=== PATIENT | male | born 1945 ===

== ENCOUNTER 2024-02-11 18:55 | Inpatient (IN) | payer MEDICARE, MEDICAID, SELFPAY ==
[2024-02-11 21:32] VITALS: BP 159/90; PULSE 83; RESP 18; TEMP 36.8; O2SAT 98
[2024-02-11 21:35] VITALS: BMI 21.5
[2024-02-11] MEDS: Acetaminophen 325 MG TABLET 650 MG PO (22:35)
[2024-02-11] MEDS: Flu Vacc TS2024-25(6mos up)/PF 0.5 ML SYRINGE IM (22:50)
--- NOTE | 2024-02-12 01:34 | PC.ADMIT ---
Admitted these 78 y.o. male patient per stretcher accompanied by linux security administrator w/ CV. According to the report Pt drove from his home in [facility] to [place] to look for his ex-girlfriend, woman did not know him and called the police. Pt w/ increase cognitive decline, lability, disorganization. Upon admission, pt is pleasant on approached, cooperative. Pt is alert and oriented x4, very talkative, irritable and hyper verbal at times. Skin is intact, w/ an old bruise around his L. eye and neck. Pt. w/ +2 pedal edema on the L. foot and wearing a knee brace on the L. leg. Pt has medical hx of HTN, Chronic pain and GERD. Pt is independent in ADL's and ambulation using a cane at home. Pt denies SI/HI/ depression/anxiety/AVH and feels safe in the unit. Pt c/o pain on his L.leg and was given Tylenol w/ effect. Dr. Lexy Cortez notified of the admission w/ admitting orders in. Pt signs some of the release of information but he refused to sign some of it. We'll continue to monitor the patient.
[2024-02-12 08:00] VITALS: BP 135/73; PULSE 86; RESP 16; O2SAT 97
[2024-02-12] MEDS: Gabapentin 300 MG CAPSULE 600 MG PO ×3 (08:42→20:29)
[2024-02-12] MEDS: Aspirin 81 MG TAB.CHEW PO (08:43)
[2024-02-12] MEDS: Donepezil HCl 5 MG TABLET PO (08:43)
[2024-02-12] MEDS: Acetaminophen 325 MG TABLET 650 MG PO ×2 (08:43→20:29)
[2024-02-12] MEDS: Omeprazole 20 MG CAPSULE.DR PO (08:43)
[2024-02-12 09:27] VITALS: BP 154/82
[2024-02-12] MEDS: amLODIPine Besylate 10 MG TABLET PO (09:27)
[2024-02-12 09:28] VITALS: BP 154/82
[2024-02-12] MEDS: lisinopriL 20 MG TABLET PO (09:28)
--- NOTE | 2024-02-12 11:48 | HO.PM.IMCN ---
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 Patient was initially picked up by the police in [facility] after he repeatedly attempted to see a person at her house who he claimed was an old friend who was inviting him over, though the resident categorically denied knowing the patient and was becoming worried about herself being. Medical consult for admission H&P. ?Patient appears mildly manic and delusional at time of interview and exam, speaking energetically without significant pauses. Occasionally difficult to redirect. Patient noted to have ecchymosis on left side of his face around his eye. Reports fell playing soccer with his grandkids. Also notes a history of polio when he was a child and suffering from post-polio syndrome and chronic left drop. Reports some recent increase in swelling of left foot. Has been using compression stockings. Patient denies any acute medical complaints, though HPI difficult to obtain due to patient's fixation on telling his story of how he was brought to the hospital. Denies chest pain/pressure, palpitations. No shortness of breath or difficulty breathing. Denies fever, chills, nausea, vomiting, abdominal pain. Review of Systems Review of Systems: Increased left foot swelling Otherwise no acute medical complaints PMFSH Social History Household Members: None Housing: Apartment Do you presently have visiting nurse or other home services: No ('[employer]have a [employer] that buy foods and groceries .) Patient Tobacco Use Status: Former Tobacco user Tobacco use type: Cigarette Cigarette Packs Per Day: 1 Cigarettes Per Day: 1 Smoked in Last 30 Days: No e-Cigarette/Vaping Use: Never Used Patient Interested in Nicotine Replacement: No Patient Given Instructions on How to Stop Smoking: No (PT quit smoking since 1984) Second Hand Smoke Exposure: No Use of substances other than those prescribed or required for medical reasons: No Currently Displaying Signs/Symptoms of Drug Intoxication Withdrawal: No Any prior treatment program specific to substance use: No Have you been hit, kicked, punched, or otherwise hurt by someone within the past year? If so, by whom?: No Do you feel safe in your current relationship?: Yes Is there a partner from a previous relationship who is making you feel unsafe now?: No Are you made to feel afraid or neglected: No Advance Directives: No Advance Directives Information Provided: Yes Do you have thoughts of harming others: None Do you have a plan to hurt others: No Plan Recently lost weight without trying: No Eating poorly because of decreased appetite: No Nutrition Risks: No Nutritional Risk Poor oral hygiene: No Meds Allergies Allergy/AdvReac Type Severity Reaction Status Date / Time buspirone AdvReac Hallucinati Verified 02/11/24 21:47 ons trazodone AdvReac Unknown Verified 02/11/24 21:47 Active Medications: Current Medications Acetaminophen (Acetaminophen 325 Mg Tablet) 650 mg PO Q6H PRN PRN Reason: Headache/Pain Mild Scale (1-3) Last Admin: 02/12/24 08:43 Dose: 650 mg Al Hydroxide/Mg Hydroxide (Magnesium Hydrox/Alum Hydrox 30 Ml Oral.Susp) 30 ml PO Q6H PRN PRN Reason: Heartburn/Nausea Amitriptyline HCl (Amitriptyline Hcl 25 Mg Tablet) 75 mg PO BEDTIME [facility] Amlodipine Besylate (Amlodipine Besylate 10 Mg Tablet) 10 mg PO DAILY [facility]; Protocol Last Admin: 02/12/24 09:27 Dose: 10 mg Aspirin (Aspirin 81 Mg Tab.Chew) 81 mg PO DAILY [facility] Last Admin: 02/12/24 08:43 Dose: 81 mg Donepezil HCl (Donepezil Hcl 5 Mg Tablet) 5 mg PO DAILY [facility] Last Admin: 02/12/24 08:43 Dose: 5 mg Gabapentin (Gabapentin 300 Mg Capsule) 600 mg PO TID [facility] Last Admin: 02/12/24 08:42 Dose: 600 mg Hydroxyzine HCl (Hydroxyzine Hcl 25 Mg Tablet) 25 mg PO Q6H PRN PRN Reason: Anxiety Lisinopril (Lisinopril 20 Mg Tablet) 20 mg PO DAILY [facility]; Protocol Last Admin: 02/12/24 09:28 Dose: 20 mg Magnesium Hydroxide (Milk Of Magnesia 30 Ml Oral.Susp) 30 ml PO DAILY PRN PRN Reason: Constipation Omeprazole (Omeprazole 20 Mg Capsule.) 20 mg PO DAILY@0630 [facility] Last Admin: 02/12/24 08:43 Dose: 20 mg Home Medications ?Medication ?Instructions ?Recorded ?Confirmed ?Last Taken ?Type acetaminophen 500 mg tablet 1,000 mg PO QID PRN Pain 02/11/24 02/11/24 02/10/24 22:39 History (Acetaminophen Extra Strength) amitriptyline 25 mg tablet 75 mg PO BEDTIME 02/11/24 02/11/24 02/10/24 20:28 History amlodipine 10 mg tablet 10 mg PO DAILY 02/11/24 02/11/24 Unknown History aspirin 81 mg capsule,delayed 81 mg PO DAILY 02/11/24 02/11/24 02/11/24 09:48 History release donepezil 5 mg tablet 5 mg PO QAM 02/11/24 02/11/24 02/11/24 09:48 History gabapentin 300 mg capsule 600 mg PO TID 02/11/24 02/11/24 02/11/24 09:48 History lisinopril 20 mg tablet 20 mg PO DAILY 02/11/24 02/11/24 02/11/24 09:48 History pantoprazole 40 mg tablet,delayed 40 mg PO QAM 02/11/24 02/11/24 02/11/24 09:48 History release Physical Exam Vital Signs and Narrative: Vital Signs: Last Vital Signs Temp 98.2 F 02/11/24 21:32 Pulse 86 02/12/24 08:00 Resp 16 02/12/24 08:00 BP 154/82 H 02/12/24 09:28 Pulse Ox 97 02/12/24 08:00 O2 Del Method Room Air 02/12/24 08:00 BMI result Body Mass Index 21.5 General: AOx3, no acute distress Resp: CTA bilaterally CVS: S1, S2, RRR GI: +BS, NT, no distention Skin: Warm, dry Neuro: Cranial nerves II-XII grossly intact bilaterally. Chronic left drop foot, otherwise motor grossly intact bilaterally Extremities: Left foot swelling. 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 Patient was initially picked up by the police in [facility] after he repeatedly attempted to see a person at her house who he claimed was an old friend who was inviting him over, though the resident categorically denied knowing the patient and was becoming worried about herself being. Medical consult for admission H&P. ? Mood disorder Plan as per psychiatry Left drop foot with edema Chronic, secondary to childhood polio and post-polio symdrome Compression stockings, foot elevation while in bed for edema HTN Continue amlodipine, lisinopril Peripheral neuropathy Continue gabapentin GERD Continue PPI Thank you for allowing us to participate in the care of this patient. Signing off at this time. Please re-consult if any acute complaints or issues arise.
[2024-02-12 13:10] VITALS: BMI 21.5
--- NOTE | 2024-02-12 18:29 | P.HPPS_ITS ---
HPI Date of Service: 02/12/24 Chief Complaint: Mood disorder unspecified Sources of Information: patient interviewed, chart reviewed and crisis/core team assessment reviewed HPI Subjective Notes: Santana Warning, Conditional Voluntary and 3 Day Narrative: Patient is a 78-year-old male with history of hypertension, Polio/post-polio syndrome with left footdrop, GERD, arthritis, without any known psychiatric history who presents for being disorganized. Patient says this is a misunderstanding and is frustrated with the [facility] police. Patient says that he was trying to get a hold of his old high school flame name Milli; says they talked on the phone and he had her address and was driving from his home in [facility] to meet her. He went to the house that he thought was hers, knocked on the door and some unknown woman came out, coincidentally also named Elizabeth. Patient drove home but returned the following week and went to the police/fire station asking for help to find the house with the address he had. Of course it was the same address and they took him to the same house. Patient said when he got there he realized it was the same, incorrect house and told them not to knock on the door; they did not and the woman was irate and said patient was stalking her. Police thus brought him to the hospital and here he is. He denies any history of psychiatric hospitalization; denies any history of manic episodes/behaviors; denies any SI. He wants to discharge and return home saying he is cooking Thanksgiving for friends. Past Psychiatric History: Denies any past history of psychiatric admissions Limited history of psychiatric medications; he said when he was 10 years ago he was briefly prescribed BuSpar but only took it once and never again Currently on amitriptyline 75 mg q.h.s. On donepezil 5 mg daily Medical Evaluation Reviewed: Yes [facility] Medical History (Updated 02/12/24 @ 18:40 by Arvin Chatman MD) Transient disorientation Family History: Deferred Social History: Patient lives in [facility] [place] [facility] about 10 years ago Has numerous children; extensive extended family Substance History: denies Trauma History: Defer Diagnostics Vital Signs (24Hr): Vital Signs - 24 hr 02/11/24 21:32 02/12/24 08:00 02/12/24 09:27 Temperature 98.2 F Pulse Rate 83 86 Respiratory Rate 18 16 Blood Pressure 159/90 H 135/73 154/82 H Pulse Oximetry 98 97 Oxygen Delivery Method Room Air Room Air 02/12/24 09:28 Temperature Pulse Rate Respiratory Rate Blood Pressure 154/82 H Pulse Oximetry Oxygen Delivery Method BMI result Body Mass Index 21.5 Meds/Allergies Meds Home Medications ?Medication ?Instructions ?Recorded ?Confirmed ?Type acetaminophen 500 mg tablet 1,000 mg PO QID PRN Pain 02/11/24 02/11/24 History (Acetaminophen Extra Strength) amitriptyline 25 mg tablet 75 mg PO BEDTIME 02/11/24 02/11/24 History amlodipine 10 mg tablet 10 mg PO DAILY 02/11/24 02/11/24 History aspirin 81 mg capsule,delayed 81 mg PO DAILY 02/11/24 02/11/24 History release donepezil 5 mg tablet 5 mg PO QAM 02/11/24 02/11/24 History gabapentin 300 mg capsule 600 mg PO TID 02/11/24 02/11/24 History lisinopril 20 mg tablet 20 mg PO DAILY 02/11/24 02/11/24 History pantoprazole 40 mg tablet,delayed 40 mg PO QAM 02/11/24 02/11/24 History release Allergies Allergies Allergy/AdvReac Type Severity Reaction Status Date / Time buspirone AdvReac Hallucinati Verified 02/11/24 21:47 ons trazodone AdvReac Unknown Verified 02/11/24 21:47 Mental Status Exam Mental Status Exam Narrative: Pt is alert and oriented; behavior is cooperative, friendly and calm; patient is not in distress; dressed in casual attire with adequate grooming and hygiene; bruise on left eye he said was from a soccer ball playing with nephews; mood is described as good and affect congruent; eye contact appropriate; Speech is normal rate, volume and prosody and not pressured; no psychomotor agitation/retardation present; thought process is organized and goal directed, though can be circumstantial; Thought content is on unnecessary psychiatric admission, discharge; otherwise pertinent to relevant topics; no overt delusional/paranoid thinking expressed or at least that could be determined; denies any SI/HI; denies any AVH and does not appear to be internally preoccupied. Patients insight and judgment possibly impaired though not clear. Assessment & Plan Assessment & Plan (1) Transient disorientation: Status: Acute Code(s): R41.0 - Disorientation, unspecified Plan Patient is a 78-year-old male with history of hypertension, Polio/post-polio syndrome with left footdrop, GERD, arthritis, without any known psychiatric history who presents for being disorganized. Patient says this is a misunderstanding and is frustrated with the [facility] police. Patient says that he was trying to get a hold of his old high school flame name Milli; says they talked on the phone and he had her address and was driving from his home in [facility] to meet her. He went to the house that he thought was hers, knocked on the door and some unknown woman came out, coincidentally also named Elizabeth. Patient drove home but returned the following week and went to the police/fire station asking for help to find the house with the address he had. Of course it was the same address and they took him to the same house. Patient said when he got there he realized it was the same, incorrect house and told them not to knock on the door; they did not and the woman was irate and said patient was stalking her. Police thus brought him to the hospital and here he is. He denies any history of psychiatric hospitalization; denies any history of manic episodes/behaviors; denies any SI. He wants to discharge and return home saying he is cooking Thanksgiving for friends. Formulation/clinical reasoning: Patient presents logical and with organized speech and behavior. He can be irritable at times but that matches with the fact that he feels he has been wrongly admitted to a psychiatric hospital. Denies any history of psychiatric illness or admissions. Patient explains this mishap with going to the wrong house in a logical and organized way. It is unclear however if this is an accurate per trail of what happened. He does have a history of being on donepezil making dementia a rule out as possible contributing factor. Will need to assess further, try to gather collateral and do cognitive testing. Plan: CV/3 day notice Q 15 minute checks Continue home medications Cognitive testing Get head CT from sending facility Gather collateral Will order UA Will repeat labs to monitor potassium Labs from sending facility: CBC grossly WNL with mild normocytic anemia; BUN/creatinine grossly WNL lytes WNL Initially hypokalemia at 2.8 that resolved and returned to normal at 3.7 No UA Patient educated on: diagnosis and medication risk/benefits Informed Consent: understands and further education needed Reason for continued inpatient stay Substantial Risk for: stable for discharge and rapid decompensation Statement Statement: I have reviewed the history and physical and performed a pertinent examination on my patient. No changes have occurred unless specified. If the History and Physical was not performed prior to admission, the Hospitalist's service will be consulted for completing the admission physical. Time Spent With Patient Time: Total time managing care of this patient today ____ minutes.
[2024-02-12 20:00] VITALS: BP 154/74; PULSE 82; RESP 18; TEMP 36.6; O2SAT 98
[2024-02-12] MEDS: OLANZapine 2.5 MG TABLET PO (22:25)
[2024-02-12] MEDS: Amitriptyline HCl 25 MG TABLET 75 MG PO (22:25)
--- NOTE | 2024-02-13 | ECG_ITS ---
Test Reason : LOW POTASSIUM Blood Pressure : / mmHG Vent. Rate : 075 BPM Atrial Rate : 075 BPM P-R Int : 208 ms QRS Dur : 128 ms QT Int : 406 ms P-R-T Axes : 076 -34 035 degrees QTc Int : 453 ms Normal sinus rhythm Left axis deviation Left ventricular hypertrophy with QRS widening ( R in aVL , Sokolow-Agustin , Jay product , Romhilt-June ) Nonspecific T wave abnormality Abnormal ECG No previous ECGs available Referred By: Samantha Rendon Electronically Signed By:PAZ SUE MD
[2024-02-13] MEDS: Omeprazole 20 MG CAPSULE.DR PO (06:46)
[2024-02-13 07:58] VITALS: BP 155/77; PULSE 80; RESP 15; TEMP 36.8; O2SAT 95
[2024-02-13] MEDS: Aspirin 81 MG TAB.CHEW PO (08:00)
[2024-02-13] MEDS: amLODIPine Besylate 10 MG TABLET PO (08:00)
[2024-02-13] MEDS: Donepezil HCl 5 MG TABLET PO (08:00)
[2024-02-13] MEDS: Gabapentin 300 MG CAPSULE 600 MG PO ×3 (08:00→20:56)
[2024-02-13] MEDS: lisinopriL 20 MG TABLET PO (08:02)
[2024-02-13] MEDS: Acetaminophen 325 MG TABLET 650 MG PO ×2 (08:10→21:02)
[2024-02-13 09:03] LABS: MANUAL DIFF FLAG NO
[2024-02-13 09:06] LABS: Basophils Absolute Auto 0.1 X10*3/uL (0.0-0.2); Basophils Percent Auto 0.5 % (0-2); Eosinophils Absolute Auto 0.6 X10*3/uL (0.0-0.4); Eosinophils Percent Auto 6.3 % (0-4); Hematocrit 31.4 % (42.0-52.0); Hemoglobin 10.7 g/dl (14.0-18.0); Imm Gran Abs Auto 0.03 X10*3/uL (0.00-0.03); Imm Gran Pct Auto 0.3 % (0.0-0.4); Lymphocytes Absolute Auto 2.2 X10*3/uL (1.2-4.9); Lymphocytes Percent Auto 23.7 % (20-40); Mean Corpuscular HGB Conc 34.1 g/dl (31.0-36.0); Mean Corpuscular Hemoglobin 31.3 pg (27.0-33.0); Mean Corpuscular Volume 91.8 fL (80.0-98.0); Mean Platelet Volume 11.4 fL (9.4-12.4); Monocytes Absolute Auto 0.8 X10*3/uL (0.1-1.2); Monocytes Percent Auto 8.3 % (2-11); Neutrophils Absolute Auto 5.8 x10*3/uL (2.0-8.3); Neutrophils Percent Auto 60.9 % (45-73); Platelet Count 157 X10*3/uL (160-400); Red Blood Count 3.42 X10*6/uL (4.60-5.80); White Blood Count 9.5 X10*3/uL (4.8-10.8)
[2024-02-13 09:28] LABS: Alanine Aminotransferase 16 U/L (0-40); Albumin Level 3.4 g/dL (3.5-5.0); Alkaline Phosphatase 52 U/L (39-117); Anion Gap 11 (12-20); Aspartate Amino Transferase 34 U/L (5-37); Bilirubin Total 0.6 mg/dL (0.0-1.0); Blood Urea Nitrogen 18 mg/dL (9-16); Carbon Dioxide 30 mmol/L (22-29); Chloride 107 mmol/L (96-108); Creatinine Clr Calc Pharmacy 68.3; Estimated Glomerular Filt Rate > 60; Glucose Random 92 mg/dL (60-115); Potassium 2.7 mmol/L (3.3-5.1); Sodium 145 mmol/L (135-145); Total Protein 5.6 g/dL (6.5-8.0)
[2024-02-13 09:47] LABS: Cholesterol 158 mg/dL (<200); HDL Cholesterol 38 mg/dL (>40); LDL Cholesterol Calculated 100 mg/dL (<100); Triglycerides 104 mg/dL (<150)
[2024-02-13 09:57] LABS: Folate 9.1 ng/mL (> or = 4.0); Vitamin B12 471 pg/mL (200-900)
[2024-02-13 10:07] LABS: Thyroid Stimulating Hormone 1.23 uIU/mL (0.32-4.0)
--- NOTE | 2024-02-13 11:04 | PM.EVENT ---
Event Note Date of Service: 02/13/24 Event Note: Pt found to have hypokalemia on routine labs. he is not having nausea, vomiting or diarrhea. not on any diuretics, steroids, or inhalers. kidney function is good, GFR>60. A/P: EKG ok appears to have chronic hypokalemia in records, had K of 2.8 recently give K 60meq PO now, additional 40 meq later tonight. mag normal. recheck BMP tomorrow, will likely need daily supplementation will continue to follow for now. Time Spent With Patient Time: Total time managing care of this patient today ____ minutes.
[2024-02-13] MEDS: Potassium Chloride Packet 20 MEQ PACKET 60 MEQ PO (11:57)
--- NOTE | 2024-02-13 12:30 | HO.PSYCHPN ---
Subjective Subjective Date of Service: 02/13/24 Reason For Visit: Mood disorder unspecified Interim History: Met with patient; discussed with team, more evidence of cognitive impairment showing itself. Patient explained situations but the story changes and with inconsistences. 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 With OT, was unable to operate his cellphone; Briscoe/Oziel test revealed cognitive impairment. Patient signed release of information to call family EKG with ST elevation in 2 leads; no complaints of any chest pain or associated symptoms; tropes ordered out of abundance of caution which were negative Mental Status Exam Mental Status Exam Narrative: Pt is alert and oriented; behavior is cooperative, mostly friendly and calm but can get irritable; patient is not in distress; dressed in casual attire with adequate grooming and hygiene; bruise on left eye (he said was from a soccer ball playing with nephews/grandkids?); mood is described as good though affect somewhat constricted t; eye contact appropriate; Speech is normal rate, volume and prosody and not pressured; no psychomotor agitation/retardation present; thought process is mostly organized and goal directed, though can be circumstantial and can get distracted, with some forgetfulness; Thought content is on unnecessary psychiatric admission, discharge; more evidence of delusional/grandiose thinking expressed; denies any SI/HI; denies any AVH and does not appear to be internally preoccupied. Patients insight and judgment impaired Diagnostics Vital Signs (24Hr): Vital Signs - 24 hr 02/12/24 20:00 02/13/24 07:58 Temperature 97.8 F 98.2 F Pulse Rate 82 80 Respiratory Rate 18 15 Blood Pressure 154/74 H 155/77 H Pulse Oximetry 98 95 Oxygen Delivery Method Room Air Room Air BMI result Body Mass Index 21.5 Labs 02/13/24 08:04 02/14/24 16:25 Labs: Laboratory Results - last 48 hr 02/13/24 02/13/24 02/13/24 08:04 08:04 08:04 WBC 9.5 RBC 3.42 L Hgb 10.7 L Hct 31.4 L MCV 91.8 MCH 31.3 MCHC 34.1 RDW 13.0 Plt Count 157 L MPV 11.4 Immature Gran % (Auto) 0.3 Neut % (Auto) 60.9 Lymph % (Auto) 23.7 [place] % (Auto) 8.3 Eos % (Auto) 6.3 H Baso % (Auto) 0.5 Lymph # (Auto) 2.2 [place] # (Auto) 0.8 Eos # (Auto) 0.6 H Baso # (Auto) 0.1 Abs Immat Gran (auto) 0.03 Absolute Neuts (auto) 5.8 Absolute Nucleated RBC 0.000 Nucleated RBC % (auto) 0.0 Sodium Cancelled 145 Potassium Cancelled 2.7 L* Chloride Cancelled Carbon Dioxide Anion Gap BUN Creatinine Estim Creat Clear Calc Estimated GFR Random Glucose Fasting Glucose Calcium Magnesium Total Bilirubin AST ALT Alkaline Phosphatase Total Protein Albumin Triglycerides Cholesterol LDL Cholesterol, Calc HDL Cholesterol Vitamin B12 Folate [facility] 02/13/24 02/13/24 02/13/24 08:04 08:04 08:04 WBC RBC Hgb Hct MCV MCH MCHC RDW Plt Count MPV Immature Gran % (Auto) Neut % (Auto) Lymph % (Auto) [place] % (Auto) Eos % (Auto) Baso % (Auto) Lymph # (Auto) [place] # (Auto) Eos # (Auto) Baso # (Auto) Abs Immat Gran (auto) Absolute Neuts (auto) Absolute Nucleated RBC Nucleated RBC % (auto) Sodium Potassium Chloride 107 Carbon Dioxide Cancelled 30 H Anion Gap Cancelled 11 L BUN Cancelled Creatinine Estim Creat Clear Calc Estimated GFR Random Glucose Fasting Glucose Calcium Magnesium Total Bilirubin AST ALT Alkaline Phosphatase Total Protein Albumin Triglycerides Cholesterol LDL Cholesterol, Calc HDL Cholesterol Vitamin B12 Folate [facility] 02/13/24 02/13/24 02/13/24 08:04 08:04 08:04 WBC RBC Hgb Hct MCV MCH MCHC RDW Plt Count MPV Immature Gran % (Auto) Neut % (Auto) Lymph % (Auto) [place] % (Auto) Eos % (Auto) Baso % (Auto) Lymph # (Auto) [place] # (Auto) Eos # (Auto) Baso # (Auto) Abs Immat Gran (auto) Absolute Neuts (auto) Absolute Nucleated RBC Nucleated RBC % (auto) Sodium Potassium Chloride Carbon Dioxide Anion Gap BUN 18 H Creatinine Cancelled 0.86 Estim Creat Clear Calc Cancelled 68.3 Estimated GFR Cancelled Random Glucose Fasting Glucose Calcium Magnesium Total Bilirubin AST ALT Alkaline Phosphatase Total Protein Albumin Triglycerides Cholesterol LDL Cholesterol, Calc HDL Cholesterol Vitamin B12 Folate TSH 02/13/24 02/13/24 02/13/24 08:04 08:04 08:04 WBC RBC Hgb Hct MCV MCH MCHC RDW Plt Count MPV Immature Gran % (Auto) Neut % (Auto) Lymph % (Auto) [place] % (Auto) Eos % (Auto) Baso % (Auto) Lymph # (Auto) [place] # (Auto) Eos # (Auto) Baso # (Auto) Abs Immat Gran (auto) Absolute Neuts (auto) Absolute Nucleated RBC Nucleated RBC % (auto) Sodium Potassium Chloride Carbon Dioxide Anion Gap BUN Creatinine Estim Creat Clear Calc Estimated GFR > 60 Random Glucose 92 Fasting Glucose Cancelled Calcium Cancelled 9.0 Magnesium 2.0 Total Bilirubin Cancelled 0.6 AST Cancelled ALT Alkaline Phosphatase Total Protein Albumin Triglycerides Cholesterol LDL Cholesterol, Calc HDL Cholesterol Vitamin B12 Folate TSH 02/13/24 02/13/24 02/13/24 08:04 08:04 08:04 WBC RBC Hgb Hct MCV MCH MCHC RDW Plt Count MPV Immature Gran % (Auto) Neut % (Auto) Lymph % (Auto) [place] % (Auto) Eos % (Auto) Baso % (Auto) Lymph # (Auto) [place] # (Auto) Eos # (Auto) Baso # (Auto) Abs Immat Gran (auto) Absolute Neuts (auto) Absolute Nucleated RBC Nucleated RBC % (auto) Sodium Potassium Chloride Carbon Dioxide Anion Gap BUN Creatinine Estim Creat Clear Calc Estimated GFR Random Glucose Fasting Glucose Calcium Magnesium Total Bilirubin AST 34 ALT Cancelled 16 Alkaline Phosphatase Cancelled 52 Total Protein Cancelled Albumin Triglycerides Cholesterol LDL Cholesterol, Calc HDL Cholesterol Vitamin B12 Folate TSH 02/13/24 02/13/24 02/13/24 08:04 08:04 08:04 WBC RBC Hgb Hct MCV MCH MCHC RDW Plt Count MPV Immature Gran % (Auto) Neut % (Auto) Lymph % (Auto) [place] % (Auto) Eos % (Auto) Baso % (Auto) Lymph # (Auto) [place] # (Auto) Eos # (Auto) Baso # (Auto) Abs Immat Gran (auto) Absolute Neuts (auto) Absolute Nucleated RBC Nucleated RBC % (auto) Sodium Potassium Chloride Carbon Dioxide Anion Gap BUN Creatinine Estim Creat Clear Calc Estimated GFR Random Glucose Fasting Glucose Calcium Magnesium Total Bilirubin AST ALT Alkaline Phosphatase Total Protein 5.6 L Albumin Cancelled 3.4 L Triglycerides Cancelled 104 Cholesterol Cancelled LDL Cholesterol, Calc HDL Cholesterol Vitamin B12 Folate TSH 02/13/24 02/13/24 02/13/24 08:04 08:04 08:04 WBC RBC Hgb Hct MCV MCH MCHC RDW Plt Count MPV Immature Gran % (Auto) Neut % (Auto) Lymph % (Auto) [place] % (Auto) Eos % (Auto) Baso % (Auto) Lymph # (Auto) [place] # (Auto) Eos # (Auto) Baso # (Auto) Abs Immat Gran (auto) Absolute Neuts (auto) Absolute Nucleated RBC Nucleated RBC % (auto) Sodium Potassium Chloride Carbon Dioxide Anion Gap BUN Creatinine Estim Creat Clear Calc Estimated GFR Random Glucose Fasting Glucose Calcium Magnesium Total Bilirubin AST ALT Alkaline Phosphatase Total Protein Albumin Triglycerides Cholesterol 158 LDL Cholesterol, Calc Cancelled 100 H HDL Cholesterol Cancelled 38 L Vitamin B12 471 Folate 9.1 TSH Cancelled 02/13/24 08:04 WBC RBC Hgb Hct MCV MCH MCHC RDW Plt Count MPV Immature Gran % (Auto) Neut % (Auto) Lymph % (Auto) [place] % (Auto) Eos % (Auto) Baso % (Auto) Lymph # (Auto) [place] # (Auto) Eos # (Auto) Baso # (Auto) Abs Immat Gran (auto) Absolute Neuts (auto) Absolute Nucleated RBC Nucleated RBC % (auto) Sodium Potassium Chloride Carbon Dioxide Anion Gap BUN Creatinine Estim Creat Clear Calc Estimated GFR Random Glucose Fasting Glucose Calcium Magnesium Total Bilirubin AST ALT Alkaline Phosphatase Total Protein Albumin Triglycerides Cholesterol LDL Cholesterol, Calc HDL Cholesterol Vitamin B12 Folate TSH 1.23 Medications Medications Current Medications Acetaminophen (Acetaminophen 325 Mg Tablet) 650 mg PO Q6H PRN PRN Reason: Headache/Pain Mild Scale (1-3) Last Admin: 02/13/24 08:10 Dose: 650 mg Al Hydroxide/Mg Hydroxide (Magnesium Hydrox/Alum Hydrox 30 Ml Oral.Susp) 30 ml PO Q6H PRN PRN Reason: Heartburn/Nausea Amitriptyline HCl (Amitriptyline Hcl 25 Mg Tablet) 75 mg PO BEDTIME KIERRA Last Admin: 02/12/24 22:25 Dose: 75 mg Amlodipine Besylate (Amlodipine Besylate 10 Mg Tablet) 10 mg PO DAILY [facility]; Protocol Last Admin: 02/13/24 08:00 Dose: 10 mg Aspirin (Aspirin 81 Mg Tab.Chew) 81 mg PO DAILY [facility] Last Admin: 02/13/24 08:00 Dose: 81 mg Donepezil HCl (Donepezil Hcl 5 Mg Tablet) 5 mg PO DAILY [facility] Last Admin: 02/13/24 08:00 Dose: 5 mg Gabapentin (Gabapentin 300 Mg Capsule) 600 mg PO TID [facility] Last Admin: 02/13/24 08:00 Dose: 600 mg Lisinopril (Lisinopril 20 Mg Tablet) 20 mg PO DAILY [facility]; Protocol Last Admin: 02/13/24 08:02 Dose: 20 mg Magnesium Hydroxide (Milk Of Magnesia 30 Ml Oral.Susp) 30 ml PO DAILY PRN PRN Reason: Constipation Olanzapine (Olanzapine 2.5 Mg Tablet) 2.5 mg PO BID PRN PRN Reason: agitation Last Admin: 02/12/24 22:25 Dose: 2.5 mg Omeprazole (Omeprazole 20 Mg Capsule.Dr) 20 mg PO DAILY@0630 [facility] Last Admin: 02/13/24 06:46 Dose: 20 mg Potassium Chloride (Potassium Chloride Er 20 Meq Tab.Er.Prt) 40 meq PO ONCE ONE Stop: 02/13/24 18:01 Allergies Allergies Allergy/AdvReac Type Severity Reaction Status Date / Time buspirone AdvReac Hallucinati Verified 02/11/24 21:47 ons trazodone AdvReac Unknown Verified 02/11/24 21:47 Assessment & Plan Assessment & Plan (1) Transient disorientation: Status: Acute Code(s): R41.0 - Disorientation, unspecified Plan Patient is a 78-year-old male with history of hypertension, Polio/post-polio syndrome with left footdrop, GERD, arthritis, without any known psychiatric history who presents for being disorganized. Patient says this is a misunderstanding and is frustrated with the [facility] police. Patient says that he was trying to get a hold of his old high school flame name Milli; says they talked on the phone and he had her address and was driving from his home in [place] to meet her. He went to the house that he thought was hers, knocked on the door and some unknown woman came out, coincidentally also named Elizabeth. Patient drove home but returned the following week and went to the police/fire station asking for help to find the house with the address he had. Of course it was the same address and they took him to the same house. Patient said when he got there he realized it was the same, incorrect house and told them not to knock on the door; they did not and the woman was irate and said patient was stalking her. Police thus brought him to the hospital and here he is. He denies any history of psychiatric hospitalization; denies any history of manic episodes/behaviors; denies any SI. He wants to discharge and return home saying he is cooking Thanksgiving for friends. Formulation/clinical reasoning: Patient presents logical and with organized speech and behavior. He can be irritable at times but that matches with the fact that he feels he has been wrongly admitted to a psychiatric hospital. Denies any history of psychiatric illness or admissions. Patient explains this mishap with going to the wrong house in a logical and organized way. It is unclear however if this is an accurate per trail of what happened. He does have a history of being on donepezil making dementia a rule out as possible contributing factor. Will need to assess further, try to gather collateral and do cognitive testing. Hospital course: 02/12 more evidence of cognitive impairment emerging. 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 -other incongruent/grandiose/implausible comments collateral obtained from pt's son (pt signed MARIA TERESA): -says father hx of being busive emotionally and physically -has exhibited memory impairments over the last few years. -hx of abusing Xanax for years and can become aggressive. -Apartment is hoarded. -Has [facility] services going in for some services. -bruising on his face is not from playing soccer with his grandkids-. He hasn?t seen them in years. -His other son Waldemar stopped speaking with him since pt has been verbally abusive to [id number]. -EKG with ST elevation in V2/V3. Pt w/out any c/o chest pain or associated symptoms but ordered Trops out of abundance of caution which are unremarkable Plan: CV/3 day notice Q 15 minute checks Continue home medications Get head CT results from sending facility Gather collateral Will order UA Will repeat labs to monitor potassium Labs from sending facility: CBC grossly WNL with mild normocytic anemia; BUN/creatinine grossly WNL lytes WNL Initially hypokalemia at 2.8 that resolved and returned to normal at 3.7 No UA Patient educated on: diagnosis and medication risk/benefits Informed Consent: understands, does not understand and further education needed Reason for continued inpatient stay Substantial Risk for: inability to function and rapid decompensation Time Spent With Patient Time: Total time managing care of this patient today ____ minutes.
[2024-02-13 14:01] LABS: Troponin-I High Sensitivity 12.6 ng/L (<3.5-35.0)
[2024-02-13 16:10] LABS: Appearance Urine Clear; Color Urine Yellow; Glucose Urine UA Negative (Negative); Leukocyte Esterase Urine Negative (Negative); Nitrite Urine Negative (Negative); Urine Blood Negative (Negative); Urine Ketones Negative (Negative); Urine Protein Negative (Neg-Trace)
[2024-02-13 16:12] LABS: Bacteria Urine None Seen (None Seen); Hyaline Casts Urine 0-2 /LPF (0-2); RBC Urine 0-2 /HPF (0-2); Squamous Epithelial Cell Urine 0-2 /HPF (0-2); WBC Urine 0-5 /HPF (0-5)
[2024-02-13] MEDS: Potassium Chloride ER 20 MEQ TAB.ER.PRT 40 MEQ PO (17:51)
[2024-02-13 20:00] VITALS: BP 165/81; PULSE 86; RESP 16; TEMP 36.4; O2SAT 96
[2024-02-13] MEDS: Amitriptyline HCl 25 MG TABLET 75 MG PO (20:56)
[2024-02-14] MEDS: Omeprazole 20 MG CAPSULE.DR PO (06:34)
[2024-02-14 08:00] VITALS: BP 162/84; PULSE 81; RESP 18; TEMP 37.3; O2SAT 97
[2024-02-14] MEDS: amLODIPine Besylate 10 MG TABLET PO (08:55)
[2024-02-14] MEDS: Gabapentin 300 MG CAPSULE 600 MG PO ×3 (08:55→20:41)
[2024-02-14] MEDS: Aspirin 81 MG TAB.CHEW PO (08:55)
[2024-02-14] MEDS: Donepezil HCl 5 MG TABLET PO (08:55)
[2024-02-14] MEDS: lisinopriL 20 MG TABLET PO (08:55)
[2024-02-14 10:12] LABS: Anion Gap 8 (12-20); Blood Urea Nitrogen 15 mg/dL (9-16); Calcium 8.7 mg/dL (8.4-10.2); Carbon Dioxide 30 mmol/L (22-29); Chloride 109 mmol/L (96-108); Estimated Glomerular Filt Rate > 60; Glucose Random 129 mg/dL (60-115); Magnesium 1.8 mg/dL (1.6-2.6); Potassium 3.1 mmol/L (3.3-5.1); Sodium 144 mmol/L (135-145)
--- NOTE | 2024-02-14 14:17 | P.PNPSI_ITS ---
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 Had CT at hospital that transferred him to us ( reported in dr Chatman's note ) Pt appears to me to be quite tangential and a bit confused- jumps subject to subject and time lines- clearly he went to woman's house 2 x once on own and once when police tried to bring him to the address which he thought might be a different address because [facility] was added on- When asked why he didn't contact the lady by phone he went on to say new cell phone was broken and old one or other one is partially working- Medication Compliance: Yes Side effects from medications: No Attending Groups: Intermittent Review of Systems Acute medical concerns: Yes ? worsening cognitive decline and executive dysfunction affecting decisiono making Medical Review of Systems: unchanged Mental Status Exam Mental Status Exam Patient Appearance: Well Grooomed and Appropriate Patient Orientation: Person, Place, Time and Situation Level of Consciousness: Awake and Appropriate Patient Behavior: Talkative, Cooperative and Good Eye Contact Mood Description: Apprehensive Affect Description: Appropriate Ability to Follow Directions: Fair Speech Pattern: Clear Hallucinations: None Delusions: Present (nothing clear but looking to see that room door is closed and who is going in his room, and staff standing in [place] might hear) Thought Process: Distracted Thought Content: positive for Circumstantial Depressive Symptoms: Difficulty Concentrating Judgement: Fair Diagnostics Vital Signs (24Hr): Vital Signs - 24 hr 02/13/24 20:00 02/14/24 08:00 Temperature 97.6 F 99.1 F Pulse Rate 86 81 Respiratory Rate 16 18 Blood Pressure 165/81 H 162/84 H Pulse Oximetry 96 97 Oxygen Delivery Method Room Air Room Air BMI result Body Mass Index 21.5 Labs 02/13/24 08:04 02/14/24 16:25 Labs: Laboratory Results - last 48 hr 02/13/24 02/13/2424 08:04 08:04 08:04 WBC 9.5 RBC 3.42 L Hgb 10.7 L Hct 31.4 L MCV 91.8 MCH 31.3 MCHC 34.1 RDW 13.0 Plt Count 157 L MPV 11.4 Immature Gran % (Auto) 0.3 Neut % (Auto) 60.9 Lymph % (Auto) 23.7 [place] % (Auto) 8.3 Eos % (Auto) 6.3 H Baso % (Auto) 0.5 Lymph # (Auto) 2.2 [place] # (Auto) 0.8 Eos # (Auto) 0.6 H Baso # (Auto) 0.1 Abs Immat Gran (auto) 0.03 Absolute Neuts (auto) 5.8 Absolute Nucleated RBC 0.000 Nucleated RBC % (auto) 0.0 Sodium Cancelled 145 Potassium Cancelled 2.7 L* Chloride Cancelled Carbon Dioxide Anion Gap BUN Creatinine Estim Creat Clear Calc Estimated GFR Random Glucose Fasting Glucose Calcium Magnesium Total Bilirubin AST ALT Alkaline Phosphatase Troponin I High Sens Total Protein Albumin Triglycerides Cholesterol LDL Cholesterol, Calc HDL Cholesterol Vitamin B12 Folate TSH Urine Color Urine Appearance Urine pH Ur Specific [place] Urine Protein Urine Glucose (UA) Urine Ketones Urine Blood Urine Nitrite Ur Leukocyte Esterase Urine RBC Urine WBC Ur Squamous Epith Cells Urine Bacteria Hyaline Casts 02/13/24 02/13/24 02/13/24 08:04 08:04 08:04 WBC RBC Hgb Hct MCV MCH MCHC RDW Plt Count MPV Immature Gran % (Auto) Neut % (Auto) Lymph % (Auto) [place] % (Auto) Eos % (Auto) Baso % (Auto) Lymph # (Auto) [place] # (Auto) Eos # (Auto) Baso # (Auto) Abs Immat Gran (auto) Absolute Neuts (auto) Absolute Nucleated RBC Nucleated RBC % (auto) Sodium Potassium Chloride 107 Carbon Dioxide Cancelled 30 H Anion Gap Cancelled 11 L BUN Cancelled Creatinine Estim Creat Clear Calc Estimated GFR Random Glucose Fasting Glucose Calcium Magnesium Total Bilirubin AST ALT Alkaline Phosphatase Troponin I High Sens Total Protein Albumin Triglycerides Cholesterol LDL Cholesterol, Calc HDL Cholesterol Vitamin B12 Folate TSH Urine Color Urine Appearance Urine pH Ur Specific [place] Urine Protein Urine Glucose (UA) Urine Ketones Urine Blood Urine Nitrite Ur Leukocyte Esterase Urine RBC Urine WBC Ur Squamous Epith Cells Urine Bacteria Hyaline Casts 02/13/24 02/13/24 02/13/24 08:04 08:04 08:04 WBC RBC Hgb Hct MCV MCH MCHC RDW Plt Count MPV Immature Gran % (Auto) Neut % (Auto) Lymph % (Auto) [place] % (Auto) Eos % (Auto) Baso % (Auto) Lymph # (Auto) [place] # (Auto) Eos # (Auto) Baso # (Auto) Abs Immat Gran (auto) Absolute Neuts (auto) Absolute Nucleated RBC Nucleated RBC % (auto) Sodium Potassium Chloride Carbon Dioxide Anion Gap BUN 18 H Creatinine Cancelled 0.86 Estim Creat Clear Calc Cancelled 68.3 Estimated GFR Cancelled Random Glucose Fasting Glucose Calcium Magnesium Total Bilirubin AST ALT Alkaline Phosphatase Troponin I High Sens Total Protein Albumin Triglycerides Cholesterol LDL Cholesterol, Calc HDL Cholesterol Vitamin B12 Folate TSH Urine Color Urine Appearance Urine pH Ur Specific [place] Urine Protein Urine Glucose (UA) Urine Ketones Urine Blood Urine Nitrite Ur Leukocyte Esterase Urine RBC Urine WBC Ur Squamous Epith Cells Urine Bacteria Hyaline Casts 02/13/24 02/13/24 02/13/24 08:04 08:04 08:04 WBC RBC Hgb Hct MCV MCH MCHC RDW Plt Count MPV Immature Gran % (Auto) Neut % (Auto) Lymph % (Auto) [place] % (Auto) Eos % (Auto) Baso % (Auto) Lymph # (Auto) [place] # (Auto) Eos # (Auto) Baso # (Auto) Abs Immat Gran (auto) Absolute Neuts (auto) Absolute Nucleated RBC Nucleated RBC % (auto) Sodium Potassium Chloride Carbon Dioxide Anion Gap BUN Creatinine Estim Creat Clear Calc Estimated GFR > 60 Random Glucose 92 Fasting Glucose Cancelled Calcium Cancelled 9.0 Magnesium 2.0 Total Bilirubin Cancelled 0.6 AST Cancelled ALT Alkaline Phosphatase Troponin I High Sens Total Protein Albumin Triglycerides Cholesterol LDL Cholesterol, Calc HDL Cholesterol Vitamin B12 Folate TSH Urine Color Urine Appearance Urine pH Ur Specific [place] Urine Protein Urine Glucose (UA) Urine Ketones Urine Blood Urine Nitrite Ur Leukocyte Esterase Urine RBC Urine WBC Ur Squamous Epith Cells Urine Bacteria Hyaline Casts 02/13/24 02/13/24 02/13/24 08:04 08:04 08:04 WBC RBC Hgb Hct MCV MCH MCHC RDW Plt Count MPV Immature Gran % (Auto) Neut % (Auto) Lymph % (Auto) [place] % (Auto) Eos % (Auto) Baso % (Auto) Lymph # (Auto) [place] # (Auto) Eos # (Auto) Baso # (Auto) Abs Immat Gran (auto) Absolute Neuts (auto) Absolute Nucleated RBC Nucleated RBC % (auto) Sodium Potassium Chloride Carbon Dioxide Anion Gap BUN Creatinine Estim Creat Clear Calc Estimated GFR Random Glucose Fasting Glucose Calcium Magnesium Total Bilirubin AST 34 ALT Cancelled 16 Alkaline Phosphatase Cancelled 52 Troponin I High Sens Total Protein Cancelled Albumin Triglycerides Cholesterol LDL Cholesterol, Calc HDL Cholesterol Vitamin B12 Folate TSH Urine Color Urine Appearance Urine pH Ur Specific [place] Urine Protein Urine Glucose (UA) Urine Ketones Urine Blood Urine Nitrite Ur Leukocyte Esterase Urine RBC Urine WBC Ur Squamous Epith Cells Urine Bacteria Hyaline Casts 02/13/24 02/13/24 02/13/24 08:04 08:04 08:04 WBC RBC Hgb Hct MCV MCH MCHC RDW Plt Count MPV Immature Gran % (Auto) Neut % (Auto) Lymph % (Auto) [place] % (Auto) Eos % (Auto) Baso % (Auto) Lymph # (Auto) [place] # (Auto) Eos # (Auto) Baso # (Auto) Abs Immat Gran (auto) Absolute Neuts (auto) Absolute Nucleated RBC Nucleated RBC % (auto) Sodium Potassium Chloride Carbon Dioxide Anion Gap BUN Creatinine Estim Creat Clear Calc Estimated GFR Random Glucose Fasting Glucose Calcium Magnesium Total Bilirubin AST ALT Alkaline Phosphatase Troponin I High Sens Total Protein 5.6 L Albumin Cancelled 3.4 L Triglycerides Cancelled 104 Cholesterol Cancelled LDL Cholesterol, Calc HDL Cholesterol Vitamin B12 Folate TSH Urine Color Urine Appearance Urine pH Ur Specific [place] Urine Protein Urine Glucose (UA) Urine Ketones Urine Blood Urine Nitrite Ur Leukocyte Esterase Urine RBC Urine WBC Ur Squamous Epith Cells Urine Bacteria Hyaline Casts 02/13/24 02/13/24 02/13/24 08:04 08:04 08:04 WBC RBC Hgb Hct MCV MCH MCHC RDW Plt Count MPV Immature Gran % (Auto) Neut % (Auto) Lymph % (Auto) [place] % (Auto) Eos % (Auto) Baso % (Auto) Lymph # (Auto) [place] # (Auto) Eos # (Auto) Baso # (Auto) Abs Immat Gran (auto) Absolute Neuts (auto) Absolute Nucleated RBC Nucleated RBC % (auto) Sodium Potassium Chloride Carbon Dioxide Anion Gap BUN Creatinine Estim Creat Clear Calc Estimated GFR Random Glucose Fasting Glucose Calcium Magnesium Total Bilirubin AST ALT Alkaline Phosphatase Troponin I High Sens Total Protein Albumin Triglycerides Cholesterol 158 LDL Cholesterol, Calc Cancelled 100 H HDL Cholesterol Cancelled 38 L Vitamin B12 471 Folate 9.1 TSH Cancelled Urine Color Urine Appearance Urine pH Ur Specific [place] Urine Protein Urine Glucose (UA) Urine Ketones Urine Blood Urine Nitrite Ur Leukocyte Esterase Urine RBC Urine WBC Ur Squamous Epith Cells Urine Bacteria Hyaline Casts 02/13/24 02/13/24 02/13/24 08:04 13:30 15:52 WBC RBC Hgb Hct MCV MCH MCHC RDW Plt Count MPV Immature Gran % (Auto) Neut % (Auto) Lymph % (Auto) [place] % (Auto) Eos % (Auto) Baso % (Auto) Lymph # (Auto) [place] # (Auto) Eos # (Auto) Baso # (Auto) Abs Immat Gran (auto) Absolute Neuts (auto) Absolute Nucleated RBC Nucleated RBC % (auto) Sodium Potassium Chloride Carbon Dioxide Anion Gap BUN Creatinine Estim Creat Clear Calc Estimated GFR Random Glucose Fasting Glucose Calcium Magnesium Total Bilirubin AST ALT Alkaline Phosphatase Troponin I High Sens 12.6 Total Protein Albumin Triglycerides Cholesterol LDL Cholesterol, Calc HDL Cholesterol Vitamin B12 Folate TSH 1.23 Urine Color Yellow Urine Appearance Clear Urine pH 8.0 Ur Specific [place] 1.010 Urine Protein Negative Urine Glucose (UA) Negative Urine Ketones Negative Urine Blood Negative Urine Nitrite Negative Ur Leukocyte Esterase Negative Urine RBC 0-2 Urine WBC 0-5 Ur Squamous Epith Cells 0-2 Urine Bacteria None Seen Hyaline Casts 0-2 02/14/24 09:25 WBC RBC Hgb Hct MCV MCH MCHC RDW Plt Count MPV Immature Gran % (Auto) Neut % (Auto) Lymph % (Auto) [place] % (Auto) Eos % (Auto) Baso % (Auto) Lymph # (Auto) [place] # (Auto) Eos # (Auto) Baso # (Auto) Abs Immat Gran (auto) Absolute Neuts (auto) Absolute Nucleated RBC Nucleated RBC % (auto) Sodium 144 Potassium 3.1 L Chloride 109 H Carbon Dioxide 30 H Anion Gap 8 L BUN 15 Creatinine 1.03 Estim Creat Clear Calc 57.0 Estimated GFR > 60 Random Glucose 129 H Fasting Glucose Calcium 8.7 Magnesium 1.8 Total Bilirubin AST ALT Alkaline Phosphatase Troponin I High Sens Total Protein Albumin Triglycerides Cholesterol LDL Cholesterol, Calc HDL Cholesterol Vitamin B12 Folate TSH Urine Color Urine Appearance Urine pH Ur Specific [place] Urine Protein Urine Glucose (UA) Urine Ketones Urine Blood Urine Nitrite Ur Leukocyte Esterase Urine RBC Urine WBC Ur Squamous Epith Cells Urine Bacteria Hyaline Casts Medications Medications Current Medications Acetaminophen (Acetaminophen 325 Mg Tablet) 650 mg PO Q6H PRN PRN Reason: Headache/Pain Mild Scale (1-3) Last Admin: 02/13/24 21:02 Dose: 650 mg Al Hydroxide/Mg Hydroxide (Magnesium Hydrox/Alum Hydrox 30 Ml Oral.Susp) 30 ml PO Q6H PRN PRN Reason: Heartburn/Nausea Amitriptyline HCl (Amitriptyline Hcl 25 Mg Tablet) 75 mg PO BEDTIME COUNTS INCLUDE 234 BEDS AT THE [facility] Last Admin: 02/13/24 20:56 Dose: 75 mg Amlodipine Besylate (Amlodipine Besylate 10 Mg Tablet) 10 mg PO DAILY COUNTS INCLUDE 234 BEDS AT THE [facility]; Protocol Last Admin: 02/14/24 08:55 Dose: 10 mg Aspirin (Aspirin 81 Mg Tab.Chew) 81 mg PO DAILY COUNTS INCLUDE 234 BEDS AT THE [facility] Last Admin: 02/14/24 08:55 Dose: 81 mg Donepezil HCl (Donepezil Hcl 5 Mg Tablet) 5 mg PO DAILY COUNTS INCLUDE 234 BEDS AT THE [facility] Last Admin: 02/14/24 08:55 Dose: 5 mg Gabapentin (Gabapentin 300 Mg Capsule) 600 mg PO TID COUNTS INCLUDE 234 BEDS AT THE [facility] Last Admin: 02/14/24 08:55 Dose: 600 mg Lisinopril (Lisinopril 20 Mg Tablet) 20 mg PO DAILY COUNTS INCLUDE 234 BEDS AT THE [facility]; Protocol Last Admin: 02/14/24 08:55 Dose: 20 mg Magnesium Hydroxide (Milk Of Magnesia 30 Ml Oral.Susp) 30 ml PO DAILY PRN PRN Reason: Constipation Olanzapine (Olanzapine 2.5 Mg Tablet) 2.5 mg PO BID PRN PRN Reason: agitation Last Admin: 02/12/24 22:25 Dose: 2.5 mg Omeprazole (Omeprazole 20 Mg Capsule.Dr) 20 mg PO DAILY@0630 COUNTS INCLUDE 234 BEDS AT THE [facility] Last Admin: 02/14/24 06:34 Dose: 20 mg Allergies Allergies Allergy/AdvReac Type Severity Reaction Status Date / Time buspirone AdvReac Hallucinati Verified 02/11/24 21:47 ons trazodone AdvReac Unknown Verified 02/11/24 21:47 Assessment & Plan Assessment & Plan (1) Transient disorientation: Status: Acute Code(s): R41.0 - Disorientation, unspecified Plan Patient is a 78-year-old male with history of hypertension, Polio/post-polio syndrome with left footdrop, GERD, arthritis, without any known psychiatric history who presents for being disorganized. Patient says this is a misunderstanding and is frustrated with the [facility] police. Patient says that he was trying to get a hold of his old high school flame name Milli; says they talked on the phone and he had her address and was driving from his home in [facility] to meet her. He went to the house that he thought was hers, knocked on the door and some unknown woman came out, coincidentally also named Elizabeth. Patient drove home but returned the following week and went to the police/fire station asking for help to find the house with the address he had. Of course it was the same address and they took him to the same house. Patient said when he got there he realized it was the same, incorrect house and told them not to knock on the door; they did not and the woman was irate and said patient was stalking her. Police thus brought him to the hospital and here he is. He denies any history of psychiatric hospitalization; denies any history of manic episodes/behaviors; denies any SI. He wants to discharge and return home saying he is cooking Thanksgiving for friends. Formulation/clinical reasoning: Patient presents logical and with organized speech and behavior. He can be irritable at times but that matches with the fact that he feels he has been wrongly admitted to a psychiatric hospital. Denies any history of psychiatric illness or admissions. Patient explains this mishap with going to the wrong house in a logical and organized way. It is unclear however if this is an accurate per trail of what happened. He does have a history of being on donepezil making dementia a rule out as possible contributing factor. Will need to assess further, try to gather collateral and do cognitive testing. Hospital course: 02/12 more evidence of cognitive impairment emerging. 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 -other incongruent/grandiose/implausible comments collateral obtained from pt's son (pt signed MARIA TERESA): -says father hx of being busive emotionally and physically -has exhibited memory impairments over the last few years. -hx of abusing Xanax for years and can become aggressive. -Apartment is hoarded. -Has [employer] services going in for some services. -bruising on his face is not from playing soccer with his grandkids-. He hasn?t seen them in years. -His other son Waldemar stopped speaking with him since pt has been verbally abusive to [id number]. -EKG with ST elevation in V2/V3. Pt w/out any c/o chest pain or associated symptoms but ordered Trops out of abundance of caution which are unremarkable Plan: CV/3 day notice Q 15 minute checks Continue home medications Get head CT results from sending facility Gather collateral Will order UA Will repeat labs to monitor potassium Labs from sending facility: CBC grossly WNL with mild normocytic anemia; BUN/creatinine grossly WNL lytes WNL Initially hypokalemia at 2.8 that resolved and returned to normal at 3.7 No UA 02/13 - clearly collateral information from son bergeron- decline in memory and hx anger management issues- as well as likely fall - and intermittent benzodiazepine misuse-poor insight/impaired judgement requiring further work up - more extensive neuro work up and memory testing - monitor vitals ofr sys of benzodiazepine withdrawl - Patient educated on: other (reasons for hospitalization) Informed Consent: does not understand Reason for continued inpatient stay Substantial Risk for: rapid decompensation and med/psych decompensation Time Spent With Patient Time: Total time managing care of this patient today ____ minutes.
[2024-02-14 17:05] LABS: Anion Gap 14 (12-20); Blood Urea Nitrogen 21 mg/dL (9-16); Carbon Dioxide 26 mmol/L (22-29); Chloride 108 mmol/L (96-108); Creatinine Clr Calc Pharmacy 52.9; Estimated Glomerular Filt Rate > 60; Glucose Random 110 mg/dL (60-115); Magnesium 1.8 mg/dL (1.6-2.6); Potassium 3.6 mmol/L (3.3-5.1); Sodium 144 mmol/L (135-145)
[2024-02-14 20:00] VITALS: BP 174/85; PULSE 88; RESP 16; TEMP 36.4; O2SAT 96
[2024-02-14] MEDS: Amitriptyline HCl 25 MG TABLET 75 MG PO (20:41)
[2024-02-14] MEDS: Butalb/Acetamin/Caff 50/325/40 TABLET 1 TAB PO (20:44)
[2024-02-15] MEDS: Omeprazole 20 MG CAPSULE.DR PO (06:30)
[2024-02-15 07:52] VITALS: BP 151/73; PULSE 78; RESP 17; TEMP 36.1; O2SAT 94
[2024-02-15] MEDS: Gabapentin 300 MG CAPSULE 600 MG PO ×3 (08:19→20:45)
[2024-02-15] MEDS: Donepezil HCl 5 MG TABLET PO (08:19)
[2024-02-15] MEDS: amLODIPine Besylate 10 MG TABLET PO (08:20)
[2024-02-15] MEDS: lisinopriL 20 MG TABLET PO (08:20)
[2024-02-15] MEDS: Aspirin 81 MG TAB.CHEW PO (08:20)
--- NOTE | 2024-02-15 15:23 | HO.PSYCHPN ---
Subjective Subjective Date of Service: 02/15/24 Reason For Visit: Mood disorder unspecified Subjective Notes: Conditional Voluntary and 3 Day Healthcare Proxy: No Guardianship: No Medical Problems Affecting Mental Status: Yes (progressing dementia ? falls - ) Interim History: 78 yo who shows me similar bruise to left side of face for whole of hamstring area- ? fall - he denies except one with is grandson taeceer which is not accurate as he has not seen grandsons in years- Continues to be pleasant and tangential/talkative. Medication Compliance: Yes Side effects from medications: No (though co omeprazole not covering him like pantoprazole did) Attending Groups: Yes Review of Systems Acute medical concerns: Yes ? falls bruising face/leg decline cognition Medical Review of Systems: changed (co gerd) Mental Status Exam Mental Status Exam Patient Appearance: Well Grooomed and Appropriate Patient Orientation: Person, Place, Time and Situation Level of Consciousness: Awake Patient Behavior: Appropriate, Cooperative and Good Eye Contact Mood Description: Calm Affect Description: Appropriate Patient Cognition Impaired: Yes Ability to Follow Directions: Fair Speech Pattern: Clear Hallucinations: None Delusions: Not Present Thought Process: Intact and Goal Oriented Thought Content: positive for Tangential Depressive Symptoms: Isolating-Friends/Family Judgement: Fair Diagnostics Vital Signs (24Hr): Vital Signs - 24 hr 02/14/24 20:00 02/15/24 07:52 Temperature 97.6 F 96.9 F Pulse Rate 88 78 Respiratory Rate 16 17 Blood Pressure 174/85 H 151/73 H Pulse Oximetry 96 94 Oxygen Delivery Method Room Air Room Air BMI result Body Mass Index 21.5 Labs 02/13/24 08:04 02/14/24 16:25 Labs: Laboratory Results - last 48 hr 02/13/24 02/14/24 02/14/24 15:52 09:25 16:25 Sodium 144 144 Potassium 3.1 L 3.6 Chloride 109 H 108 Carbon Dioxide 30 H 26 Anion Gap 8 L 14 BUN 15 21 H Creatinine 1.03 1.11 Estim Creat Clear Calc 57.0 52.9 Estimated GFR > 60 > 60 Random Glucose 129 H 110 Calcium 8.7 9.0 Magnesium 1.8 1.8 Urine Color Yellow Urine Appearance Clear Urine pH 8.0 Ur Specific [place] 1.010 Urine Protein Negative Urine Glucose (UA) Negative Urine Ketones Negative Urine Blood Negative Urine Nitrite Negative Ur Leukocyte Esterase Negative Urine RBC 0-2 Urine WBC 0-5 Ur Squamous Epith Cells 0-2 Urine Bacteria None Seen Hyaline Casts 0-2 Medications Medications Current Medications Acetaminophen (Acetaminophen 325 Mg Tablet) 975 mg PO Q8H PRN PRN Reason: Headache/Pain Mild Scale (1-3) Acetaminophen/Butalbital/Caffeine (Butalb/Acetamin/Caff 50/325/40 Tablet) 1 tab PO DAILY PRN PRN Reason: Pain, Severe (Pain Scale 7-10) Last Admin: 02/14/24 20:44 Dose: 1 tab Al Hydroxide/Mg Hydroxide (Magnesium Hydrox/Alum Hydrox 30 Ml Oral.Susp) 30 ml PO Q6H PRN PRN Reason: Heartburn/Nausea Amitriptyline HCl (Amitriptyline Hcl 25 Mg Tablet) 75 mg PO BEDTIME REPLACED BY [facility] Last Admin: 02/14/24 20:41 Dose: 75 mg Amlodipine Besylate (Amlodipine Besylate 10 Mg Tablet) 10 mg PO DAILY REPLACED BY [facility]; Protocol Last Admin: 02/15/24 08:20 Dose: 10 mg Aspirin (Aspirin 81 Mg Tab.Chew) 81 mg PO DAILY REPLACED BY [facility] Last Admin: 02/15/24 08:20 Dose: 81 mg Donepezil HCl (Donepezil Hcl 5 Mg Tablet) 5 mg PO DAILY REPLACED BY [facility] Last Admin: 02/15/24 08:19 Dose: 5 mg Gabapentin (Gabapentin 300 Mg Capsule) 600 mg PO TID REPLACED BY [facility] Last Admin: 02/15/24 08:19 Dose: 600 mg Lisinopril (Lisinopril 20 Mg Tablet) 20 mg PO DAILY REPLACED BY [facility]; Protocol Last Admin: 02/15/24 08:20 Dose: 20 mg Magnesium Hydroxide (Milk Of Magnesia 30 Ml Oral.Susp) 30 ml PO DAILY PRN PRN Reason: Constipation Olanzapine (Olanzapine 2.5 Mg Tablet) 2.5 mg PO BID PRN PRN Reason: agitation Last Admin: 02/12/24 22:25 Dose: 2.5 mg Omeprazole (Omeprazole 20 Mg Capsule.Dr) 20 mg PO DAILY@0630 REPLACED BY [facility] Last Admin: 02/15/24 06:30 Dose: 20 mg Allergies Allergies Allergy/AdvReac Type Severity Reaction Status Date / Time buspirone AdvReac Hallucinati Verified 02/11/24 21:47 ons trazodone AdvReac Unknown Verified 02/11/24 21:47 Assessment & Plan Assessment & Plan (1) Transient disorientation: Status: Acute Code(s): R41.0 - Disorientation, unspecified Plan Patient is a 78-year-old male with history of hypertension, Polio/post-polio syndrome with left footdrop, GERD, arthritis, without any known psychiatric history who presents for being disorganized. Patient says this is a misunderstanding and is frustrated with the [facility] police. Patient says that he was trying to get a hold of his old high school flame name Milli; says they talked on the phone and he had her address and was driving from his home in [place] to meet her. He went to the house that he thought was hers, knocked on the door and some unknown woman came out, coincidentally also named Elizabeth. Patient drove home but returned the following week and went to the police/fire station asking for help to find the house with the address he had. Of course it was the same address and they took him to the same house. Patient said when he got there he realized it was the same, incorrect house and told them not to knock on the door; they did not and the woman was irate and said patient was stalking her. Police thus brought him to the hospital and here he is. He denies any history of psychiatric hospitalization; denies any history of manic episodes/behaviors; denies any SI. He wants to discharge and return home saying he is cooking Thanksgiving for friends. Formulation/clinical reasoning: Patient presents logical and with organized speech and behavior. He can be irritable at times but that matches with the fact that he feels he has been wrongly admitted to a psychiatric hospital. Denies any history of psychiatric illness or admissions. Patient explains this mishap with going to the wrong house in a logical and organized way. It is unclear however if this is an accurate per trail of what happened. He does have a history of being on donepezil making dementia a rule out as possible contributing factor. Will need to assess further, try to gather collateral and do cognitive testing. Hospital course: 02/12 more evidence of cognitive impairment emerging. 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 -other incongruent/grandiose/implausible comments collateral obtained from pt's son (pt signed MARIA TERESA): -says father hx of being busive emotionally and physically -has exhibited memory impairments over the last few years. -hx of abusing Xanax for years and can become aggressive. -Apartment is hoarded. -Has [facility] going in for some services. -bruising on his face is not from playing soccer with his grandkids-. He hasn?t seen them in years. -His other son Waldemar stopped speaking with him since pt has been verbally abusive to [id number]. -EKG with ST elevation in V2/V3. Pt w/out any c/o chest pain or associated symptoms but ordered Trops out of abundance of caution which are unremarkable Plan: CV/3 day notice Q 15 minute checks Continue home medications Get head CT results from sending facility Gather collateral Will order UA Will repeat labs to monitor potassium Labs from sending facility: CBC grossly WNL with mild normocytic anemia; BUN/creatinine grossly WNL lytes WNL Initially hypokalemia at 2.8 that resolved and returned to normal at 3.7 No UA 02/13 - clearly collateral information from son bergeron- decline in memory and hx anger management issues- as well as likely fall - and intermittent benzodiazepine misuse-poor insight/impaired judgement requiring further work up - more extensive neuro work up and memory testing - monitor vitals ofr sys of benzodiazepine withdrawl - 02/14 had moca other day - says he got 95%- ongoing mild dementia- ? 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
[2024-02-15] MEDS: Magnesium Hydrox/Alum Hydrox 30 ML ORAL.SUSP PO (15:59)
[2024-02-15 20:00] VITALS: BP 146/84; PULSE 100; RESP 16; TEMP 36.3; O2SAT 100
[2024-02-15] MEDS: Amitriptyline HCl 25 MG TABLET 75 MG PO (20:45)
[2024-02-15] MEDS: Butalb/Acetamin/Caff 50/325/40 TABLET 1 TAB PO (23:07)
[2024-02-16] MEDS: Omeprazole 20 MG CAPSULE.DR PO (06:15)
[2024-02-16 09:14] VITALS: BP 139/75; PULSE 74; RESP 17; TEMP 35.9; O2SAT 96
[2024-02-16] MEDS: amLODIPine Besylate 10 MG TABLET PO (09:15)
[2024-02-16] MEDS: Aspirin 81 MG TAB.CHEW PO (09:16)
[2024-02-16] MEDS: Donepezil HCl 5 MG TABLET PO (09:16)
[2024-02-16] MEDS: Gabapentin 300 MG CAPSULE 600 MG PO ×3 (09:16→20:42)
[2024-02-16] MEDS: lisinopriL 20 MG TABLET PO (09:16)
[2024-02-16] MEDS: Acetaminophen 325 MG TABLET 975 MG PO (14:52)
--- NOTE | 2024-02-16 16:15 | HO.PSYCHPN ---
Subjective Subjective Date of Service: 02/16/24 Reason For Visit: Mood disorder unspecified Subjective Notes: Conditional Voluntary and 3 Day Interim History: Pt slept through the night. He is upset about car being impounded and him having to assume the cost. He does not think he needed to be sectioned and transported to the psych unit. He is consistent with his history about trying to find this friend and going to this house. He thinks woman over reacted and was quick to call the police when there was no need. His MOCA was 20/30 with most impairments in naming, language fluency, recall and orientation to place and city. Surprisingly his executive function and visuo spatial skills were intact. His ACL is 4.2 showing moderate cognitive decline. Mental Status Exam Mental Status Exam Narrative: Appearance: wearing hospital gown, good hygiene, in NAD Behavior: guarded, somewhat irritable Psychomotor: no agitation or retardation noted Speech: clear, normal rate/rhythm/volume, spontaneous TP: tangential TC: wanting to be discharged but also not wanting to pay for impounded car mood: okay Affect: irritable at times, with low frustration tolerance SI: none HI: none VH/AH: none Delusions: none Insight/judgment: poor x 2 Memory/cog: His MOCA was 20/30 with most impairments in naming, language fluency, recall and orientation to place and city. Surprisingly his executive function and visuo spatial skills were intact. His ACL is 4.2 showing moderate cognitive decline. Diagnostics Vital Signs (24Hr): Vital Signs - 24 hr 02/15/24 20:00 02/16/24 09:14 Temperature 97.3 F 96.6 F L Pulse Rate 100 74 Respiratory Rate 16 17 Blood Pressure 146/84 H 139/75 Pulse Oximetry 100 96 Oxygen Delivery Method Room Air Room Air BMI result Body Mass Index 21.5 Labs 02/13/24 08:04 02/14/24 16:25 Labs: Laboratory Results - last 48 hr 02/14/24 16:25 Sodium 144 Potassium 3.6 Chloride 108 Carbon Dioxide 26 Anion Gap 14 BUN 21 H Creatinine 1.11 Estim Creat Clear Calc 52.9 Estimated GFR > 60 Random Glucose 110 Calcium 9.0 Magnesium 1.8 Medications Medications Current Medications Acetaminophen (Acetaminophen 325 Mg Tablet) 975 mg PO Q8H PRN PRN Reason: Headache/Pain Mild Scale (1-3) Last Admin: 02/16/24 14:52 Dose: 975 mg Acetaminophen/Butalbital/Caffeine (Butalb/Acetamin/Caff 50/325/40 Tablet) 1 tab PO DAILY PRN PRN Reason: Pain, Severe (Pain Scale 7-10) Last Admin: 02/15/24 23:07 Dose: 1 tab Al Hydroxide/Mg Hydroxide (Magnesium Hydrox/Alum Hydrox 30 Ml Oral.Susp) 30 ml PO Q6H PRN PRN Reason: Heartburn/Nausea Last Admin: 02/15/24 15:59 Dose: 30 ml Amitriptyline HCl (Amitriptyline Hcl 25 Mg Tablet) 75 mg PO BEDTIME COUNT INCLUDES THE [facility] Last Admin: 02/15/24 20:45 Dose: 75 mg Amlodipine Besylate (Amlodipine Besylate 10 Mg Tablet) 10 mg PO DAILY COUNT INCLUDES THE [facility]; Protocol Last Admin: 02/16/24 09:15 Dose: 10 mg Aspirin (Aspirin 81 Mg Tab.Chew) 81 mg PO DAILY COUNT INCLUDES THE [facility] Last Admin: 02/16/24 09:16 Dose: 81 mg Donepezil HCl (Donepezil Hcl 5 Mg Tablet) 5 mg PO DAILY COUNT INCLUDES THE [facility] Last Admin: 02/16/24 09:16 Dose: 5 mg Gabapentin (Gabapentin 300 Mg Capsule) 600 mg PO TID COUNT INCLUDES THE [facility] Last Admin: 02/16/24 14:52 Dose: 600 mg Lisinopril (Lisinopril 20 Mg Tablet) 20 mg PO DAILY COUNT INCLUDES THE [facility]; Protocol Last Admin: 02/16/24 09:16 Dose: 20 mg Magnesium Hydroxide (Milk Of Magnesia 30 Ml Oral.Susp) 30 ml PO DAILY PRN PRN Reason: Constipation Olanzapine (Olanzapine 2.5 Mg Tablet) 2.5 mg PO BID PRN PRN Reason: agitation Last Admin: 02/12/24 22:25 Dose: 2.5 mg Omeprazole (Omeprazole 20 Mg Capsule.Dr) 20 mg PO DAILY@0630 COUNT INCLUDES THE [facility] Last Admin: 02/16/24 06:15 Dose: 20 mg Allergies Allergies Allergy/AdvReac Type Severity Reaction Status Date / Time buspirone AdvReac Hallucinati Verified 02/11/24 21:47 ons trazodone AdvReac Unknown Verified 02/11/24 21:47 Assessment & Plan Assessment & Plan (1) Major neurocognitive disorder: Status: Acute Code(s): F03.90 - Unspecified dementia, unspecified severity, without behavioral disturbance, psychotic disturbance, mood disturbance, and anxiety Plan Patient is a 78-year-old male with history of hypertension, Polio/post-polio syndrome with left footdrop, GERD, arthritis, without any known psychiatric history who presents for being disorganized. Patient says this is a misunderstanding and is frustrated with the [facility] police. Patient says that he was trying to get a hold of his old high school flame name Milli; says they talked on the phone and he had her address and was driving from his home in [place] to meet her. He went to the house that he thought was hers, knocked on the door and some unknown woman came out, coincidentally also named Elizabeth. Patient drove home but returned the following week and went to the police/fire station asking for help to find the house with the address he had. Of course it was the same address and they took him to the same house. Patient said when he got there he realized it was the same, incorrect house and told them not to knock on the door; they did not and the woman was irate and said patient was stalking her. Police thus brought him to the hospital and here he is. He denies any history of psychiatric hospitalization; denies any history of manic episodes/behaviors; denies any SI. He wants to discharge and return home saying he is cooking Thanksgiving for friends. 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 -other incongruent/grandiose/implausible comments 02/15- plan to d/c tomorrow. collateral obtained from pt's son (pt signed MARIA TERESA): -says father hx of being busive emotionally and physically -has exhibited memory impairments over the last few years. -hx of abusing Xanax for years and can become aggressive. -Apartment is hoarded. -Has [facility] elderly services going in for some services. -bruising on his face is not from playing soccer with his grandkids-. He hasn?t seen them in years. -His other son Waldemar stopped speaking with him since pt has been verbally abusive to [id number]. -EKG with ST elevation in V2/V3. Pt w/out any c/o chest pain or associated symptoms but ordered Trops out of abundance of caution which are unremarkable Plan: CV/3 day notice Q 15 minute checks Continue home medications Get head CT results from sending facility Gather collateral Will order UA Will repeat labs to monitor potassium Labs from sending facility: CBC grossly WNL with mild normocytic anemia; BUN/creatinine grossly WNL lytes WNL Initially hypokalemia at 2.8 that resolved and returned to normal at 3.7 No UA Reason for continued inpatient stay Substantial Risk for: inability to function Time Spent With Patient Time: Total time managing care of this patient today ____ minutes.
[2024-02-16 20:00] VITALS: BP 150/71; PULSE 78; RESP 17; TEMP 36.4; O2SAT 99
[2024-02-16] MEDS: Amitriptyline HCl 25 MG TABLET 75 MG PO (20:42)
[2024-02-17] MEDS: Omeprazole 20 MG CAPSULE.DR PO (05:42)
[2024-02-17 08:00] VITALS: BP 131/88; PULSE 88; RESP 16; TEMP 36.2; O2SAT 99
[2024-02-17] MEDS: Gabapentin 300 MG CAPSULE 600 MG PO (09:21)
[2024-02-17] MEDS: Aspirin 81 MG TAB.CHEW PO (09:21)
[2024-02-17] MEDS: Donepezil HCl 5 MG TABLET PO (09:21)
[2024-02-17 09:22] VITALS: BP 131/88
[2024-02-17] MEDS: amLODIPine Besylate 10 MG TABLET PO (09:22)
[2024-02-17 09:23] VITALS: BP 131/88
[2024-02-17] MEDS: lisinopriL 20 MG TABLET PO (09:23)
[2024-02-17] MEDS: Acetaminophen 325 MG TABLET 975 MG PO (09:33)
--- NOTE | 2024-02-17 10:03 | PM.PSYDC ---
DS: Providers Provider Date of Service: 02/17/24 Date of admission: 02/11/24 18:55 Date of discharge: 02/17/24 Primary care physician: Unknown Physician Consults: 02/11/24 21:47 Consult to Hospitalist Routine Comment: Consulting Provider: Hospitalist Reason For Exam: Direct admission 02/13/24 09:33 Consult to Hospitalist Routine Comment: Consulting Provider: Hospitalist Reason For Exam: K at 2.7 DS: Diagnosis Discharge Diagnosis (1) Major neurocognitive disorder: Status: Acute DS: Medications Discharge Medications Home Medications: Home Medications ?Medication ?Instructions ?Recorded ?Confirmed aspirin 81 mg capsule,delayed 81 mg PO DAILY 02/11/24 02/11/24 release Previous Rx's ?Medication ?Instructions ?Recorded acetaminophen 500 mg tablet 1,000 mg (2 x 500 mg) PO QID PRN 02/17/24 (Acetaminophen Extra Strength) Pain 30 days #60 tabs amitriptyline 25 mg tablet 75 mg (3 x 25 mg) PO BEDTIME 30 02/17/24 days #90 tabs amlodipine 10 mg tablet 10 mg PO DAILY 30 days #30 tabs 02/17/24 aspirin 81 mg chewable tablet 81 mg PO DAILY 30 days #30 tabs 02/17/24 [id number]-[id number] 1 tab PO DAILY PRN Pain, Severe 02/17/24 50 mg-325 mg-40 mg tablet (Pain Scale 7-10) 30 days #10 tabs donepezil 5 mg tablet 5 mg PO QAM 30 days #30 tabs 02/17/24 gabapentin 300 mg capsule 600 mg (2 x 300 mg) PO TID 30 days 02/17/24 #180 caps lisinopril 20 mg tablet 20 mg PO DAILY 30 days #30 tabs 02/17/24 olanzapine 2.5 mg tablet 2.5 mg PO BID PRN agitation 30 02/17/24 days #30 tabs pantoprazole 40 mg tablet,delayed 40 mg PO QAM 30 days #30 tabs 02/17/24 release Mental Status Exam Mental Status Exam Narrative: Appearance: wearing hospital gown, good hygiene, in NAD Behavior: guarded, somewhat irritable Psychomotor: no agitation or retardation noted Speech: clear, normal rate/rhythm/volume, spontaneous TP: tangential TC: wanting to be discharged but also not wanting to pay for impounded car mood: okay Affect: irritable at times, with low frustration tolerance SI: none HI: none VH/AH: none Delusions: none Insight/judgment: poor x 2 Memory/cog: His MOCA was 20/30 with most impairments in naming, language fluency, recall and orientation to place and city. Surprisingly his executive function and visuo spatial skills were intact. His ACL is 4.2 showing moderate cognitive decline. Data Data Completed and Pending Completed studies during hospitalization [Text1]: 02/13/24 02/13/24 02/13/24 08:04 08:04 08:04 WBC 9.5 RBC 3.42 L Hgb 10.7 L Hct 31.4 L MCV 91.8 MCH 31.3 MCHC 34.1 RDW 13.0 Plt Count 157 L MPV 11.4 Immature Gran % (Auto) 0.3 Neut % (Auto) 60.9 Lymph % (Auto) 23.7 Cocke % (Auto) 8.3 Eos % (Auto) 6.3 H Baso % (Auto) 0.5 Lymph # (Auto) 2.2 Cocke # (Auto) 0.8 Eos # (Auto) 0.6 H Baso # (Auto) 0.1 Abs Immat Gran (auto) 0.03 Absolute Neuts (auto) 5.8 Absolute Nucleated RBC 0.000 Nucleated RBC % (auto) 0.0 Sodium Cancelled 145 Potassium Cancelled 2.7 L* Chloride Cancelled Carbon Dioxide Anion Gap BUN Creatinine Estim Creat Clear Calc Estimated GFR Random Glucose Fasting Glucose Calcium Magnesium Total Bilirubin AST ALT Alkaline Phosphatase Troponin I High Sens Total Protein Albumin Triglycerides Cholesterol LDL Cholesterol, Calc HDL Cholesterol Vitamin B12 Folate TSH Urine Color Urine Appearance Urine pH Ur Specific [place] Urine Protein Urine Glucose (UA) Urine Ketones Urine Blood Urine Nitrite Ur Leukocyte Esterase Urine RBC Urine WBC Ur Squamous Epith Cells Urine Bacteria Hyaline Casts 02/13/24 02/13/24 02/13/24 08:04 08:04 08:04 WBC RBC Hgb Hct MCV MCH MCHC RDW Plt Count MPV Immature Gran % (Auto) Neut % (Auto) Lymph % (Auto) Cocke % (Auto) Eos % (Auto) Baso % (Auto) Lymph # (Auto) [place]ke # (Auto) Eos # (Auto) Baso # (Auto) Abs Immat Gran (auto) Absolute Neuts (auto) Absolute Nucleated RBC Nucleated RBC % (auto) Sodium Potassium Chloride 107 Carbon Dioxide Cancelled 30 H Anion Gap Cancelled 11 L BUN Cancelled Creatinine Estim Creat Clear Calc Estimated GFR Random Glucose Fasting Glucose Calcium Magnesium Total Bilirubin AST ALT Alkaline Phosphatase Troponin I High Sens Total Protein Albumin Triglycerides Cholesterol LDL Cholesterol, Calc HDL Cholesterol Vitamin B12 Folate TSH Urine Color Urine Appearance Urine pH Ur Specific [place] Urine Protein Urine Glucose (UA) Urine Ketones Urine Blood Urine Nitrite Ur Leukocyte Esterase Urine RBC Urine WBC Ur Squamous Epith Cells Urine Bacteria Hyaline Casts 02/13/24 02/13/24 02/13/24 08:04 08:04 08:04 WBC RBC Hgb Hct MCV MCH MCHC RDW Plt Count MPV Immature Gran % (Auto) Neut % (Auto) Lymph % (Auto) Cocke % (Auto) Eos % (Auto) Baso % (Auto) Lymph # (Auto) [place]ke # (Auto) Eos # (Auto) Baso # (Auto) Abs Immat Gran (auto) Absolute Neuts (auto) Absolute Nucleated RBC Nucleated RBC % (auto) Sodium Potassium Chloride Carbon Dioxide Anion Gap BUN 18 H Creatinine Cancelled 0.86 Estim Creat Clear Calc Cancelled 68.3 Estimated GFR Cancelled Random Glucose Fasting Glucose Calcium Magnesium Total Bilirubin AST ALT Alkaline Phosphatase Troponin I High Sens Total Protein Albumin Triglycerides Cholesterol LDL Cholesterol, Calc HDL Cholesterol Vitamin B12 Folate TSH Urine Color Urine Appearance Urine pH Ur Specific [place] Urine Protein Urine Glucose (UA) Urine Ketones Urine Blood Urine Nitrite Ur Leukocyte Esterase Urine RBC Urine WBC Ur Squamous Epith Cells Urine Bacteria Hyaline Casts 02/13/24 02/13/24 02/13/24 08:04 08:04 08:04 WBC RBC Hgb Hct MCV MCH MCHC RDW Plt Count MPV Immature Gran % (Auto) Neut % (Auto) Lymph % (Auto) Cocke % (Auto) Eos % (Auto) Baso % (Auto) Lymph # (Auto) Cocke # (Auto) Eos # (Auto) Baso # (Auto) Abs Immat Gran (auto) Absolute Neuts (auto) Absolute Nucleated RBC Nucleated RBC % (auto) Sodium Potassium Chloride Carbon Dioxide Anion Gap BUN Creatinine Estim Creat Clear Calc Estimated GFR > 60 Random Glucose 92 Fasting Glucose Cancelled Calcium Cancelled 9.0 Magnesium 2.0 Total Bilirubin Cancelled 0.6 AST Cancelled ALT Alkaline Phosphatase Troponin I High Sens Total Protein Albumin Triglycerides Cholesterol LDL Cholesterol, Calc HDL Cholesterol Vitamin B12 Folate TSH Urine Color Urine Appearance Urine pH Ur Specific [place] Urine Protein Urine Glucose (UA) Urine Ketones Urine Blood Urine Nitrite Ur Leukocyte Esterase Urine RBC Urine WBC Ur Squamous Epith Cells Urine Bacteria Hyaline Casts 02/13/24 02/13/24 02/13/24 08:04 08:04 08:04 WBC RBC Hgb Hct MCV MCH MCHC RDW Plt Count MPV Immature Gran % (Auto) Neut % (Auto) Lymph % (Auto) Cocke % (Auto) Eos % (Auto) Baso % (Auto) Lymph # (Auto) [place]ke # (Auto) Eos # (Auto) Baso # (Auto) Abs Immat Gran (auto) Absolute Neuts (auto) Absolute Nucleated RBC Nucleated RBC % (auto) Sodium Potassium Chloride Carbon Dioxide Anion Gap BUN Creatinine Estim Creat Clear Calc Estimated GFR Random Glucose Fasting Glucose Calcium Magnesium Total Bilirubin AST 34 ALT Cancelled 16 Alkaline Phosphatase Cancelled 52 Troponin I High Sens Total Protein Cancelled Albumin Triglycerides Cholesterol LDL Cholesterol, Calc HDL Cholesterol Vitamin B12 Folate TSH Urine Color Urine Appearance Urine pH Ur Specific [place] Urine Protein Urine Glucose (UA) Urine Ketones Urine Blood Urine Nitrite Ur Leukocyte Esterase Urine RBC Urine WBC Ur Squamous Epith Cells Urine Bacteria Hyaline Casts 02/13/24 02/13/24 02/13/24 08:04 08:04 08:04 WBC RBC Hgb Hct MCV MCH MCHC RDW Plt Count MPV Immature Gran % (Auto) Neut % (Auto) Lymph % (Auto) Cocke % (Auto) Eos % (Auto) Baso % (Auto) Lymph # (Auto) [place]ke # (Auto) Eos # (Auto) Baso # (Auto) Abs Immat Gran (auto) Absolute Neuts (auto) Absolute Nucleated RBC Nucleated RBC % (auto) Sodium Potassium Chloride Carbon Dioxide Anion Gap BUN Creatinine Estim Creat Clear Calc Estimated GFR Random Glucose Fasting Glucose Calcium Magnesium Total Bilirubin AST ALT Alkaline Phosphatase Troponin I High Sens Total Protein 5.6 L Albumin Cancelled 3.4 L Triglycerides Cancelled 104 Cholesterol Cancelled LDL Cholesterol, Calc HDL Cholesterol Vitamin B12 Folate TSH Urine Color Urine Appearance Urine pH Ur Specific [place] Urine Protein Urine Glucose (UA) Urine Ketones Urine Blood Urine Nitrite Ur Leukocyte Esterase Urine RBC Urine WBC Ur Squamous Epith Cells Urine Bacteria Hyaline Casts 02/13/24 02/13/24 02/13/24 08:04 08:04 08:04 WBC RBC Hgb Hct MCV MCH MCHC RDW Plt Count MPV Immature Gran % (Auto) Neut % (Auto) Lymph % (Auto) Cocke % (Auto) Eos % (Auto) Baso % (Auto) Lymph # (Auto) Cocke # (Auto) Eos # (Auto) Baso # (Auto) Abs Immat Gran (auto) Absolute Neuts (auto) Absolute Nucleated RBC Nucleated RBC % (auto) Sodium Potassium Chloride Carbon Dioxide Anion Gap BUN Creatinine Estim Creat Clear Calc Estimated GFR Random Glucose Fasting Glucose Calcium Magnesium Total Bilirubin AST ALT Alkaline Phosphatase Troponin I High Sens Total Protein Albumin Triglycerides Cholesterol 158 LDL Cholesterol, Calc Cancelled 100 H HDL Cholesterol Cancelled 38 L Vitamin B12 471 Folate 9.1 TSH Cancelled Urine Color Urine Appearance Urine pH Ur Specific [place] Urine Protein Urine Glucose (UA) Urine Ketones Urine Blood Urine Nitrite Ur Leukocyte Esterase Urine RBC Urine WBC Ur Squamous Epith Cells Urine Bacteria Hyaline Casts 02/13/24 02/13/24 02/13/24 08:04 13:30 15:52 WBC RBC Hgb Hct MCV MCH MCHC RDW Plt Count MPV Immature Gran % (Auto) Neut % (Auto) Lymph % (Auto) Cocke % (Auto) Eos % (Auto) Baso % (Auto) Lymph # (Auto) Cocke # (Auto) Eos # (Auto) Baso # (Auto) Abs Immat Gran (auto) Absolute Neuts (auto) Absolute Nucleated RBC Nucleated RBC % (auto) Sodium Potassium Chloride Carbon Dioxide Anion Gap BUN Creatinine Estim Creat Clear Calc Estimated GFR Random Glucose Fasting Glucose Calcium Magnesium Total Bilirubin AST ALT Alkaline Phosphatase Troponin I High Sens 12.6 Total Protein Albumin Triglycerides Cholesterol LDL Cholesterol, Calc HDL Cholesterol Vitamin B12 Folate TSH 1.23 Urine Color Yellow Urine Appearance Clear Urine pH 8.0 Ur Specific [place] 1.010 Urine Protein Negative Urine Glucose (UA) Negative Urine Ketones Negative Urine Blood Negative Urine Nitrite Negative Ur Leukocyte Esterase Negative Urine RBC 0-2 Urine WBC 0-5 Ur Squamous Epith Cells 0-2 Urine Bacteria None Seen Hyaline Casts 0-2 02/14/24 02/14/24 09:25 16:25 WBC RBC Hgb Hct MCV MCH MCHC RDW Plt Count MPV Immature Gran % (Auto) Neut % (Auto) Lymph % (Auto) Cocke % (Auto) Eos % (Auto) Baso % (Auto) Lymph # (Auto) Cocke # (Auto) Eos # (Auto) Baso # (Auto) Abs Immat Gran (auto) Absolute Neuts (auto) Absolute Nucleated RBC Nucleated RBC % (auto) Sodium 144 144 Potassium 3.1 L 3.6 Chloride 109 H 108 Carbon Dioxide 30 H 26 Anion Gap 8 L 14 BUN 15 21 H Creatinine 1.03 1.11 Estim Creat Clear Calc 57.0 52.9 Estimated GFR > 60 > 60 Random Glucose 129 H 110 Fasting Glucose Calcium 8.7 9.0 Magnesium 1.8 1.8 Total Bilirubin AST ALT Alkaline Phosphatase Troponin I High Sens Total Protein Albumin Triglycerides Cholesterol LDL Cholesterol, Calc HDL Cholesterol Vitamin B12 Folate TSH Urine Color Urine Appearance Urine pH Ur Specific [place] Urine Protein Urine Glucose (UA) Urine Ketones Urine Blood Urine Nitrite Ur Leukocyte Esterase Urine RBC Urine WBC Ur Squamous Epith Cells Urine Bacteria Hyaline Casts DS: Summary Hospital Course Hospital Course: Subjective Notes: Santana Warning, Conditional Voluntary and 3 Day Narrative: Patient is a 78-year-old male with history of hypertension, Polio/post-polio syndrome with left footdrop, GERD, arthritis, without any known psychiatric history who presents for being disorganized. Patient says this is a misunderstanding and is frustrated with the [facility] police. Patient says that he was trying to get a hold of his old high school flame name Milli; says they talked on the phone and he had her address and was driving from his home in [place] to meet her. He went to the house that he thought was hers, knocked on the door and some unknown woman came out, coincidentally also named Elizabeth. Patient drove home but returned the following week and went to the police/fire station asking for help to find the house with the address he had. Of course it was the same address and they took him to the same house. Patient said when he got there he realized it was the same, incorrect house and told them not to knock on the door; they did not and the woman was irate and said patient was stalking her. Police thus brought him to the hospital and here he is. He denies any history of psychiatric hospitalization; denies any history of manic episodes/behaviors; denies any SI. He wants to discharge and return home saying he is cooking Thanksgiving for friends. Past Psychiatric History: Denies any past history of psychiatric admissions Limited history of psychiatric medications; he said when he was 10 years ago he was briefly prescribed BuSpar but only took it once and never again Currently on amitriptyline 75 mg q.h.s. On donepezil 5 mg daily Medical Evaluation Reviewed: Yes HOSPITAL COURSE On the unit, pt was admitted on a CV and placed on 15 minutes checks for safety. Pt has hx of dementia, on aricept. He scored 4.2 on ACL and his MOCA although showed minimal impairments in executive function and visuo spatial, shows deficits on orientation, recall, language fluency, naming and repetition, suggesting AD or mixed etiology. His assessment and continued treatment was additionally challenging due to what seems to be personality traits that have pushed his own family away. Collateral information was gathered from his son, who reports declined in memory and cognition, and also problems he has had over the years maintaining relationships. On the unit, pt declined any further interventions. He reports working with PCP who prescribes most of his medications, including aricept. He declined any other referrals for additional services. On the unit, he did not present with psychosis or delusions. No other safety concerns in terms of SI or HI. He was discharged back home. His son was informed of assessment and disposition and in agreement with plan. Time Spent with Patient Time attestation: Total time managing care of this patient today ____ minutes. Discharge Plan Discharge Anticipated Discharge Date/Time: 02/17/24 10:09 Patient Disposition: Home, Self-Care Discharge Diagnosis: Major Neurocognitive Disorder Mood d/o R/O Referrals: Physician,Unknown J [Primary Care Provider] - 1 Week Discharge Medications: New olanzapine 2.5 mg Tablet 2.5 mg PO BID PRN (Reason: agitation) 30 Days Qty: 30 0RF bfjuwtzcxr-aeerwqghbybst-irgd 50-325-40 mg Tablet 1 tab PO DAILY PRN (Reason: Pain, Severe (Pain Scale 7-10)) 30 Days Qty: 10 0RF aspirin 81 mg Tablet,Chewable 81 mg PO DAILY 30 Days Qty: 30 0RF Continued donepezil 5 mg tablet 5 mg PO QAM 30 Days Qty: 30 0RF lisinopril 20 mg tablet 20 mg PO DAILY 30 Days Qty: 30 0RF acetaminophen [Acetaminophen Extra Strength] 500 mg Tablet 1,000 mg PO QID MDD NTE 4,000MG/24 HOURS PRN (Reason: Pain) 30 Days Qty: 60 0RF amitriptyline 25 mg tablet 75 mg PO BEDTIME 30 Days Qty: 90 0RF amlodipine 10 mg tablet 10 mg PO DAILY 30 Days Qty: 30 0RF pantoprazole 40 mg tablet,delayed release (DR/EC) 40 mg PO QAM 30 Days Qty: 30 0RF gabapentin 300 mg capsule 600 mg PO TID 30 Days Qty: 180 0RF Discontinued aspirin 81 mg Capsule,Delayed Release(Dr/Ec) 81 mg PO DAILY Discharge Orders: Discharge Order (Routine); Ordered 02/17/24 Ordered By: Marian Ross Diet: Regular diet Activity on Discharge: As tolerated Stand Alone Forms: Patient Portal Discharge page, Community Support Print Language: [place] Sudanese Care Plan Goals: 1. Maintain mood 2. No SI/HI 3. underlying cognitive impairments- follow up with PCP Health Concerns: Follow up with PCP Plan of Treatment: 1. Take medications as prescribed 2. Go to nearest ED or call 911 in event of emergency Assessment: Pt with somewhat irritable edge, low frustration tolerance. No SI/HI. Moderate cognitive decline. Orientation fairly intact as well as executive function. Pt declines further assistance but will follow up with PCP. Discharge Date/Time: 02/17/24 13:00
== END 2024-02-17 13:00 | disposition home or self-care (01) | DRG 884 ==
PROVIDERS: Physician Assistant; Psychiatry & Neurology Psychiatry; Admitting Provider Social Worker; Visit Provider Social Worker
DX: F03.90 Unspecified dementia, unspecified severity, without behavioral disturbance, psychotic disturbance, mood disturbance, and anxiety (principal); G14 Postpolio syndrome; M21.372 Foot drop, left foot; I10 Essential (primary) hypertension; K21.9 Gastro-esophageal reflux disease without esophagitis; G62.9 Polyneuropathy, unspecified; Z23 Encounter for immunization; Z87.891 Personal history of nicotine dependence; Z79.82 Long term (current) use of aspirin; Z79.899 Other long term (current) drug therapy
CPT/HCPCS: 36415; 80048; 80053; 80061; 81001; 82607; 82746; 83735; 84443; 84484; 85025; 90656; 93005

== ENCOUNTER 2024-02-11 18:55 | Outpatient (BNV) | payer MEDICARE, MEDICAID, SELFPAY | END 2024-02-13 10:08 | PROVIDERS: Admitting Provider Social Worker; Visit Provider Internal Medicine Cardiovascular Disease | DX: R94.31 Abnormal electrocardiogram [ECG] [EKG] (principal) | CPT/HCPCS: 93010 ==

== ENCOUNTER → 2024-02-11 18:55 | Outpatient (BNV) | payer MEDICARE, MEDICAID, SELFPAY | PROVIDERS: Admitting Provider Social Worker; Visit Provider Psychiatry & Neurology Psychiatry | DX: F03.90 Unspecified dementia, unspecified severity, without behavioral disturbance, psychotic disturbance, mood disturbance, and anxiety (principal) | CPT/HCPCS: 90792; 99231; 99232; 99238 ==

== ENCOUNTER → 2024-02-11 18:55 | Outpatient (BNV) | payer MEDICARE, MEDICAID, SELFPAY | PROVIDERS: Admitting Provider Social Worker; Visit Provider Student in an Organized Health Care Education/Training Program | DX: Z02.2 Encounter for examination for admission to residential institution (principal) | CPT/HCPCS: 99429; 99499 ==